=== PATIENT | female | born 1945 | race Caucasian/White ===

== ENCOUNTER 2017-01-09 19:50 | Emergency (ER) | payer OTHER ==
--- NOTE | ~2017-01-09 | CT101 ---
[facility] A Service of [facility] RADIOLOGY TEXT RESULTS PATIENT: LISSETH CASILLAS LOCATION: SED : 43 UNIT #: [id number] AGE: [address]: Wilver Bronson MD SEX: F ORDER DR: [id number] [place] [id number] E MR#: [id number] Acc #: [id number] NAME: LISSETH CASILLAS. : 1945 SEX: F STUDY DATE/TIME: 01/09/2017 19:54 UNIT: SED ROOM: STUDY DESCRIPTION: CT Maxillofacial Area Wo Cont Attending Physician: Wilver Bronson M.D. Ordering Physician: Wilver Bronson M.D. Primary Care Physician: Britta Christie Aprn MEDICAL IMAGING REPORT This report is preliminary unless electronic signature is present. EXAM CT scan of the facial bones without contrast 01/09/2017 HISTORY Facial bone pain and trauma status post fall today at 16:45. Hit head and face on a brick. Frontal head pain, laceration and swelling to forehead and nose. TECHNIQUE This CT exam was performed with one or more of the following radiation dose reduction techniques: automatic exposure control, adjustment of mA and/or kV according to patient size, and iterative reconstruction. FINDINGS Spiral CT was performed through the facial bones without contrast administration. Coronal reconstructions were then performed through the same region. Examination is abnormal demonstrating comminuted depressed fracture along the right side of the nasal bone. No other fracture or dislocation is seen. The orbits are normal. The visualized paranasal sinuses are clear. IMPRESSION Depressed fracture involving the right side of the nasal bone. Dictated by... Kevin Hutson M.D. THIS IS AN ELECTRONICALLY VERIFIED REPORT Kevin Hutson M.D. at 01/10/2017 2:56 PM KRT/aa [facility] A Service of [facility] RADIOLOGY TEXT RESULTS PATIENT: LISSETH CASILLAS LOCATION: SED : 43 UNIT #: [id number] AGE: [address]: Wilver Bronson MD SEX: F ORDER DR: TD: 01/10/2017 08:39 JOB #: [id number] MEDICAL IMAGING REPORT
--- NOTE | ~2017-01-09 | CT71 ---
[facility] A Service of [facility] [place] RADIOLOGY TEXT RESULTS PATIENT: LISSETH CASILLAS LOCATION: SED : 43 UNIT #: [id number] AGE: [address]: Wilver Bronson MD SEX: F ORDER DR: [id number] [address] [address] [id number] E MR#: [id number] Acc #: [id number] NAME: LISSETH CASILLAS. : 1945 SEX: F STUDY DATE/TIME: 01/09/2017 19:51 UNIT: SED ROOM: STUDY DESCRIPTION: CT Head Wo Contrast Attending Physician: Wilver Bronson M.D. Ordering Physician: Wilver Bronson M.D. Primary Care Physician: Britta Christie Aprn MEDICAL IMAGING REPORT This report is preliminary unless electronic signature is present. EXAM Head CT without contrast 01/09/2017. HISTORY Frontal head pain and laceration with swelling and bruising to forehead and nose, status post fall today at 16:45. Hit head and face on a brick TECHNIQUE Multiple axial images were obtained from the skull base to vertex without intravenous contrast administration. This CT exam was performed with one or more of the following radiation dose reduction techniques: automatic exposure control, adjustment of mA and/or kV according to patient size, and iterative reconstruction. FINDINGS The ventricles are normal in size, shape and position. There is no midline shift. There is no mass or mass effect, hemorrhage or acute infarct. Visualized paranasal sinuses are clear. Frontal scalp hematoma is noted. IMPRESSION 1. No acute intracranial abnormality. 2. Midline frontal scalp hematoma. Dictated by... Kevin Hutson M.D. THIS IS AN ELECTRONICALLY VERIFIED REPORT Kevin Hutson M.D. at 01/10/2017 2:56 PM KRT/gz TD: 01/10/2017 08:27 [facility] A Service of [facility] [place] RADIOLOGY TEXT RESULTS PATIENT: LISSETH CASILLAS LOCATION: SED : 43 UNIT #: [id number] AGE: [address]: Wilver Bronson MD SEX: F ORDER DR: JOB #: [id number] MEDICAL IMAGING REPORT
[~2017-01-09 19:50] MED LIST: ALPRAZOLAM PO; ASPIRIN; ASPIRIN81 M1 PO; ASPIRIN81 MG PO; AVAPRO PO; BACTROBAN15 GM TOP; BENADRYL PO; BENTYL20 M1 PO; CALAN40 MG PO; CALCIUM 500 + D1 TAB PO; CO Q-1075 MG PO; CRANBERRY200 MG PO; DIOVAN; FLAGYL PO; HYDRALAZINE HCL50 MG PO; KCL; KENALOG IN ORABA5 GM TOP; LASIX; LEVAQUIN PO; LOMOTIL TABLET1 TAB PO; LOTREL; LOTREL 10/20 CA1 CAP PO; LOTREL 10/20 MG1 CAP PO; LOTREL 5/10 MG1 CAP PO; LOVAZA1 G PO; MIRALAX17 GM PO; MONODOX100 MG PO; MYLANTA400 MG; MYLANTA400 MG PO; NEXIUM PO; OMEGA 3 FISH OI1 CAP PO; PHENERGAN PO; PLAVIX PO; PREMARIN PO; PREMARIN0.3 MG PO; PROTONIX PO; QUESTRAN LIGH4 G/PKT PO; VERAPAMIL ER120 MG PO; VIT B 12 IM; VIT B-12 PO; VITAMIN D 4001 UDTAB; VITAMIN K; VYTORIN 10/10 T1 TAB PO; VYTORIN 10/20 T1 TAB PO; ZITHROMAX PO; ZOFRAN ODT4 MG PO; ZOFRAN ODT4 MG/UDTAB PO
== END 2017-01-09 20:53 | disposition home or self-care (01) ==
LOC: SED 19:50
DX: S06.0X9A Concussion with loss of consciousness of unspecified duration, initial encounter (principal); S02.2XXA Fracture of nasal bones, initial encounter for closed fracture; S00.03XA Contusion of scalp, initial encounter; I10 Essential (primary) hypertension; Z23 Encounter for immunization; F41.9 Anxiety disorder, unspecified; E78.5 Hyperlipidemia, unspecified; W10.9XXA Fall (on) (from) unspecified stairs and steps, initial encounter
CPT/HCPCS: 12011; 70450; 70486; 90471; 90715; 99284